=== PATIENT | female | born 1945 | race Caucasian/White ===

== ENCOUNTER → 2017-04-30 | Day surgery (SDC) | payer MEDICARE, BC ==
[~2017-04-30] MED LIST: DEXAMETHASONE SOD PHOS 4 MG/ML VIAL IV ONE; GENTAMICIN SULFATE 80 MG/2 ML VIAL ONE; LACTATED RINGER'S 1000 ML INJ 1,000 ML ONE; LIDOCAINE HCL 1% PF 5 ML AMPULE OTHER ONE; MIDAZOLAM HCL 2 MG/2 ML VIAL ONE; ONDANSETRON HCL 4 MG/2 ML VIAL IV PUSH ONE; PROPOFOL 200 MG/20 ML AMP IV ONE; SODIUM CHLORIDE 0.9% 100 ML ADDBAG IV ONE
--- NOTE | 2017-04-30 13:57 | TN ---
cc: GOKUL SANTACRUZ M.D. DATE OF SURGERY: 04/30/2017 PREOPERATIVE DIAGNOSIS 1. Bladder lesions (ICD-10 code D41.4). 2. History of bladder cancer (ICD-10 code Z85.51). POSTOPERATIVE DIAGNOSIS 1. Bladder lesions (ICD-10 code D41.4). 2. History of bladder cancer (ICD-10 code Z85.51). PROCEDURE Transurethral resection of bladder tumors (TURBT), (CPT code 83563). INDICATION Ms. Donnelly is a 72-year-old woman with a history of transitional cell carcinoma of the bladder who recently moved to the area and as part of her surveillance cystoscopy was found to have some suspicious lesions and presents now for resection. FINDINGS Normal urethra. The ureteral orifices were normal size, shape and position, effluxing clear urine bilaterally. However, in the area of the left ureteral orifice as well as laterally along the left lateral wall and portion of the trigone there was a continuous large approximately 2-3 cm sessile lesion with a portion of it that had a papillary component, most of which was sessile. It did surround and possibly into the distal ureter. There was a previous scar also noted in the left lateral wall. No additional lesions, tumors or abnormal mucosa was identified. There was no significant trabeculation, diverticula or cellules. PROCEDURE IN DETAIL The procedure as well as the risks and benefits were explained to the patient. Informed consent was obtained. The patient was taken to the major operating theater where she was placed in the supine position. The patient was identified as well as the operative site. A universal timeout was performed in the standard fashion. At this time general anesthetic prophylactic intravenous antibiotics consisting of gentamicin 80 mg was administered. After adequate anesthetic the patient was placed in low dorsal lithotomy position, prepped and draped in the usual sterile fashion. At this time a 22.5 Ivorian obturator and sheath were placed into the bladder and the obturator removed and a 30-degree lens cystoscope was used to survey the entire bladder. 30 and 70-degree lenses were used and the findings are as above. At this time the decision was made to perform transurethral resection of these lesions using the [employer] bipolar system using normal saline. At this time the cystoscope was removed and a 27-Ivorian Kelly resectoscope with a right-angle bladder loop was placed with the help of an obturator. At this time attention was directed to the aforementioned lesions and they were resected to the appropriate depth. In the area of the ureteral orifice since there was involved tumor the ureteral orifice was resected down to the level that there was no visual visible tumor identified. At this time the base of the entire resected area which was probably three or more centimeters was fulgurated with a Bugbee probe. Care was taken not to fulgurate the ureteral orifice. Additionally, a small area of normal tissue surrounding the resection site was also fulgurated. Prior to this the specimens were removed and sent for final pathological evaluation. After confirming hemostasis and no injury or perforation of the bladder, the bladder was decompressed and the resectoscope removed. The patient tolerated the procedure well, emerged from anesthetic without difficulty and was transferred to the recovery room in stable condition to be discharged home when criteria is met. There were no obvious complications. MD JOEL Sheppard/TIM /1:33 PM /1:43 PM
== END | disposition home or self-care (01) ==
LOC: ESDC 09:42
PROVIDERS: ATTEND Urology
DX: D41.4 Neoplasm of uncertain behavior of bladder (principal); Z85.51 Personal history of malignant neoplasm of bladder; N32.9 Bladder disorder, unspecified
CPT/HCPCS: 00912; 52234; 88305; J1100; J1580; J2250; J2405; J3010; J7120